=== PATIENT | female | born 1960 | race Caucasian/White ===

== ENCOUNTER 2017-09-15 10:30 | Observation (INO) | payer OTHER ==
[2017-09-15] VITALS (8 sets, daily range): BP systolic 110–148; BP diastolic 60–87; PULSE 54–72; RESP 18–20; Ht 154.9 cm; Wt 56.3 kg
[~2017-09-15] VITALS: Ht 154.9 cm; Wt 56.3 kg
--- NOTE | 2017-09-15 11:29 | RADRPT ---
PROCEDURE: Chest x-ray CLINICAL INDICATION: Chest pain TECHNIQUE: Chest single view COMPARISON: None FINDINGS: The heart is normal in size. The pulmonary vessels are normal in caliber. The lungs are clear. Th e costophrenic angles are sharp. The visualized bony thorax is unremarkable. IMPRESSION: No acute cardiopulmonary disease. RPTAT: HH .Tramaine Kim MD, Date Time Electronically viewed and signed by .Tramaine Kim MD, MD on 09/15/2017 11:29 .W/
[2017-09-15 11:36] LABS: BASOPHIL # 0.1 10^3/ul (0.0-0.1); BASOPHILS % 1.4 % (0.0-2.0); EOSINOPHILS # 0.1 10^3/ul (0.0-0.5); EOSINOPHILS % 1.6 % (0.0-7.0); HEMATOCRIT 41.6 % (37.0-47.0); LYMPHOCYTES # 1.6 10^3/ul (0.8-2.9); LYMPHOCYTES % 32.5 % (15.0-51.0); MEAN CORPUSCULAR HGB CONC 33.7 g/dl (32.0-37.0); MONOCYTE # 0.4 10^3/ul (0.3-0.9); MONOCYTES % 7.5 % (0.0-11.0); NEUTROPHIL # 2.8 10^3/ul (1.6-7.5); NEUTROPHILS % 56.8 % (39.0-77.0); PLATELET COUNT 188 10^3/UL (140-415); RED BLOOD COUNT 4.52 10^6/ul (4.20-5.40); RED CELL DISTRIBUTION WIDTH 12.3 % (11.5-14.5)
[2017-09-15 11:54] LABS: ANION GAP 13 (8-16); BLOOD UREA NITROGEN 15 mg/dl (7-20); CALCIUM 10.4 mg/dl (8.4-10.2); CARBON DIOXIDE 30 mmol/L (21-31); CHLORIDE 106 mmol/L (97-110); CREATININE 0.83 mg/dl (0.44-1.00); GLUCOSE 95 mg/dl (70-220); POTASSIUM 3.9 mmol/L (3.5-5.1); SODIUM 145 mmol/L (135-144)
[2017-09-15 12:07] LABS: TROPONIN-I < 0.012 ng/ml (0.00-0.12)
[2017-09-15] MEDS ORDERED: ONDANSETRON 4 MG INJ IV PRN ×2 (13:00→14:00)
[2017-09-15] MEDS ORDERED: ACETAMINOPHEN 325 MG TAB PO PRN ×2 (13:00→14:00)
--- NOTE | 2017-09-15 13:57 | ERD ---
ER Documentation Chief Complaint Chief Complaint PALPITATIONS WHILE AT DOCTOR OFFICE WITH NO CP . BIGEMINY ON EKG HPI This is a 57-year-old female with no significant past medical history other than hypertension who presents to the emergency room with palpitations. The patient was at a routine office visit because of elevated blood pressure. They noted that the patient had bradycardia. She was asymptomatic at the time. Patient denies any fevers, chills, chest pain or shortness of breath, no pleuritic pain. She states compliance with medications. ROS All systems reviewed and are negative except as per history of present illness. PMhx/Soc Hx Alcohol Use: No Hx Substance Use: No Hx Tobacco Use: No Smoking Status: Current every day smoker FmHx Family History: No diabetes Physical Exam Vitals Vital Signs Date Time Temp Pulse Resp B/P Pulse Ox O2 Delivery O2 Flow Rate FiO2 09/15/17 10:33 98.7 78 20 176/75 98 Physical Exam General: Well developed, well nourished, no acute distress Head: Normocephalic, atraumatic. Eyes: Pupils equally reactive, EOM intact ENT: Moist mucous membranes Neck: Supple, no lymphadenopathy Respiratory: Lungs clear bilaterally, no distress Cardiovascular: RRR, no murmurs, rubs, or gallops Abdominal: Soft, non-tender, non-distended, no peritoneal signs : Deferred MSK: No edema, no unilateral swelling, 5/5 strength Neurologic: Alert and oriented, moving all extremities, normal speech, no focal weakness, no cerebellar signs Skin: No rash Psych: Normal mood Result Diagram: 09/15/17 1125 09/15/17 1125 Results 24 hrs Laboratory Tests Test 09/15/17 11:25 White Blood Count 5.010^3/ul Red Blood Count 4.5210^6/ul Hemoglobin 14.0g/dl Hematocrit 41.6% Mean Corpuscular Volume 92.0fl Mean Corpuscular Hemoglobin 31.0pg Mean Corpuscular Hemoglobin Concent 33.7g/dl Red Cell Distribution Width 12.3% Platelet Count 65995^3/UL Mean Platelet Volume 12.0fl Neutrophils % 56.8% Lymphocytes % 32.5% Monocytes % 7.5% Eosinophils % 1.6% Basophils % 1.4% Nucleated Red Blood Cells % 0.0/100WBC Neutrophils # 2.810^3/ul Lymphocytes # 1.610^3/ul Monocytes # 0.410^3/ul Eosinophils # 0.110^3/ul Basophils # 0.110^3/ul Nucleated Red Blood Cells # 0.010^3/ul Sodium Level 145mmol/L Potassium Level 3.9mmol/L Chloride Level 106mmol/L Carbon Dioxide Level 30mmol/L Anion Gap 13 Blood Urea Nitrogen 15mg/dl Creatinine 0.83mg/dl Glucose Level 95mg/dl Calcium Level 10.4mg/dl Magnesium Level 2.0mg/dl Troponin I < 0.012ng/ml Free Thyroxine Index 3.14ug/ml Thyroxine (T4) 9.5ug/dl Triiodothyronine (T3) Uptake 33.0% Current Medications Medications (Trade) Dose Ordered Sig/Pilo Route PRN Reason Start Time Stop Time Status Last Admin Dose Admin Ondansetron HCl (Zofran Inj) 4 mg ER BRIDGE PRN IV NAUSEA AND/OR VOMITING 09/15/17 13:00 09/16/17 12:59 Acetaminophen (Tylenol Tab) 650 mg ER BRIDGE PRN PO MILD PAIN/FEVER 09/15/17 13:00 09/16/17 12:59 IV Flush (NS 3 ml) 3 ml PER PROTOCOL IV 09/15/17 14:00 UNV Ondansetron HCl (Zofran Inj) 4 mg Q6H PRN IV NAUSEA AND/OR VOMITING 09/15/17 14:00 UNV Acetaminophen (Tylenol Tab) 650 mg Q6H PRN PO PAIN LEVEL 1-3 OR FEVER 09/15/17 14:00 UNV Acetaminophen (Tylenol Supp) 650 mg Q6H PRN [place] PAIN LEVEL 1-3 OR FEVER 09/15/17 14:00 UNV Docusate Sodium (Colace) 100 mg Q12H PRN PO CONSTIPATION 09/15/17 14:00 UNV Heparin Sodium (Porcine) (Heparin (5000 Units/0.5 ml)) 5,000 unit Q12 SC 09/15/17 21:00 UNV Aspirin (Aspirin) 81 mg DAILY PO 09/16/17 09:00 UNV Hydralazine HCl (Apresoline) 10 mg Q6H PRN IV SBP>160 09/15/17 14:00 UNV Procedures/MDM EKG, MONITORS, & DIAGNOSTIC IMAGING: Chest x-ray: I reviewed and interpreted a 1 view of the chest Mediastinum: No enlargement Cardiac silhouette: No cardiomegaly Airspace: Clear lung velasquez bilaterally without evidence of pneumothorax Bones: No evidence of fracture EKG: I reviewed and interpreted a 12-lead EKG. Rhythm: Sinus bradycardia with bigeminy Ectopy: Bigeminy Intervals: No abnormalities ST segments: No elevations or depressions T waves: No contiguous inversions LAB INTERPRETATION: Negative troponin, normal magnesium MEDICAL DECISION MAKING: The patient presents with new onset bradycardia and bigeminy. She is asymptomatic and does not require pacing. She is hemodynamically stable. However, given the concern for bigeminy and the fact that the patient had palpated bradycardia in the office I believe inpatient hospitalization for cardiology consultation would be most reasonable. Given the patient's bradycardia BB therapy in the ED may be contraindicated. ER COURSE: Patient continues to be resting comfortably. Bigeminy intermittently on school lunch monitor but the patient remains asymptomatic. Patient's troponin and electrolytes are normal. She will be admitted for further management. I kept the patient and/or family informed of laboratory and diagnostic imaging results throughout the emergency room course. DISPOSITION PLAN: Telemetry admission for new onset bigeminy Accepting care team and consultations : CONSULTATION: Accepting care team and consultations: I discussed the current laboratory data, diagnostic imaging and emergency care provided. Admitting team: Dr. Suggs Admitting team indication: Insurance directed Departure Diagnosis: Primary Impression: Palpitations Additional Impressions: Bigeminy Bradycardia Condition: Stable WILLIE CAMERON MD Sep 15, 2017 13:57
[2017-09-15] MEDS ORDERED: DOCUSATE SODIUM 100 MG CAP PO PRN (14:00)
[2017-09-15] MEDS ORDERED: ACETAMINOPHEN 650 MG SUPP PR PRN (14:00)
[2017-09-15] MEDS ORDERED: hydrALAzine 20 MG INJ IV PRN (14:00)
[2017-09-15] MEDS ORDERED: NACL 0.9% 3 ML SYG IV SCH (14:00)
--- NOTE | 2017-09-15 14:05 | HP ---
Date/Time of Note Date/Time of Note DATE: 09/15/17 TIME: 13:58 Assessment/Plan VTE Prophylaxis VTE Prophylaxis Intervention: heparin Lines/Catheters IV [facility] Saline Lock Assessment/Plan Chief Complaint/Hosp Course 57-year-old female with past medical history of hypertension, who was sent from PCP of his for evaluation of EKG changes and palpitation. 1. Palpitations/ Ventricular premature beats with bigeminy pattern. -Admit as inpatient. - Will hold off to beta-rickey secondary to bradycardia. -Cardiology consult. -Monitor electrolyte level closely. -2D echocardiogram to rule out other cardiac etiology/structural heart disease of abnormal EKG. -idea worker consult as patient is currently undergoing tremendous life stressors. 2. Essential hypertension. -As per patient, she takes lisinopril and Norvasc at home. Defer to cardiology for blood pressure management in the setting of #1. -For now patient will be treated with PRN hydralazine. 3. Anxiety. -PRN Xanax DVT prophylaxis: Heparin Rest of the management depend on hospital course. Approximately 60 minutes was spent on this history and physical. Patient was seen in collaboration with . Problems: HPI/ROS Admit Date/Time Admit Date/Time Hx of Present Illness This is a 57-year-old female with a past medical history hypertension on lisinopril and Norvasc at home, was at her PCP clinic for routine office visit for hypertension and found to have abnormal EKG with PVCs/Bigeminy and palpitation. She was then asked to go to the ER. Patient denied any chest pain , shortness of breath, dizziness, nausea, vomiting, abdominal pain or other constitutional symptoms. She reported her heart feels fluttering intermittently. She has been also under tremendous life stressors. In the emergency room, a 12-lead EKG showed sinus rhythm with bigeminy is with a heart rate 58 bpm. Patient had a normal CBC and BMP except for a sodium 145 and calcium 10.4. TSH and troponin within acceptable range. Vital signs with blood pressure 176/75. Patient was admitted for further evaluation. ROS A 12 point review of system was assessed and is negative other than what is mentioned in HPI. PMH/Family/Social Past Medical History See HPI Past Surgical History See HPI Social History Patient denied history of alcohol, smoking or illicit drug use. Smoking Status: Current every day smoker Exam/Review of Systems Vital Signs Vitals Vital Signs Date Time Temp Pulse Resp B/P Pulse Ox O2 Delivery O2 Flow Rate FiO2 09/15/17 10:33 98.7 78 20 176/75 98 Exam Exam General: Thin built female, not in any acute distress . HEENT: Normocephalic, Atraumatic, No laceration or hematoma; Eyes: PEERL, Conjunctiva clear, Anicteric sclera Neck: Supple without any lymphadenopathy, nontender, no JVD, no carotid bruits, trachea midline, no thyromegaly Cardiac: S1, S2 auscultated, Irregular rate, no mumurs or gallop Pulmonary: Normal respiratory effort. Chest clear to auscultation bilaterally, no adventitious breath sounds GI: Abdomen normal to inspection. Soft, non tender, non- distended, no masses, no rebound tenderness or guarding. Bowel sounds active on all four quadrants Genitourinary: Deferred Extremities: No cyanosis, clubbing, or edema. Pulses [2+] bilaterally. Full ROM on all four extremities. No focal weakness appreciated. Neurologic: Alert to person, place, time, and situation. Affect appropriate, intact sensation. Skin: Clean,dry, and intact. No ecchymosis, no rashes, or lesions Labs Result Diagram: 09/15/17 1125 09/15/17 1125 Medications Medications Current Medications Ondansetron HCl (Zofran Inj) 4 mg Q6H PRN IV NAUSEA AND/OR VOMITING; Start 08/22 at 14:00; Status UNV Acetaminophen (Tylenol Tab) 650 mg Q6H PRN PO PAIN LEVEL 1-3 OR FEVER; Start 09/15/17 at 14:00; Status UNV BARB LLOYD NP Sep 15, 2017 14:05 BARB LLOYD NP Sep 15, 2017 14:05
[2017-09-15 14:47] LABS: IRON 104 ug/dl (35-150)
[2017-09-15 14:57] LABS: TOTAL IRON BINDING CAPACITY 321 ug/dl (241-421)
[2017-09-15 15:53] LABS: CREATINE KINASE 108 IU/L (23-200)
[2017-09-15 16:06] LABS: CK-MB 1.56 ng/ml (0.0-2.4); TROPONIN-I < 0.012 ng/ml (0.00-0.12)
--- NOTE | 2017-09-15 16:11 | RADRPT ---
Echocardiogram Report Patient Name: NGUYEN MARIE Gender: Female Date: 1960 Study Date: 15-Sep-2017 General Utility Maintenance Repairer: Izaiah Lujan [facility] Location: 510[facility] Ref. Physician: BARB LLOYD Quality: Adequate Procedures: Transthoracic echocardiogram with complete 2D, M-Mode, and doppler examination. Indications: Abnormal EKG. 2D/M Mode Doppler Measurement Value Normal Ranges Measurement Value Normal Ranges LVIDd 2D 3.8 3.5 - 5.6 cm AV Peak Harpreet 1.2 m/sec LVIDs 2D 2.3 2.1 - 4.1 cm AV Peak PG 5.0 mmHg FS 2D 37.5 % LVOT Peak Harpreet 1.1 m/sec LVPWd 2D 1.3 0.6 - 1.1 cm LVOT Peak PG 5.0 mmHg IVSd 2D 1.3 0.6 - 1.1 cm MV E Peak Harpreet 0.8 m/sec IVS/LVPW 2D 1.0 MV A Peak Harpreet 0.9 m/sec AoR Diam 2D 2.7 2.0 - 3.7 cm MV E/A 0.9 LA/Ao 2D 1 0 - 1 MV Decel Time 239 msec EDV 2D 53.2 cm3 MV E/A 0.9 ESV 2D 13.0 cm3 TR Peak Harpreet 2.0 m/sec LA Dimen 2D 3.3 2.3 - 4.0 cm TR Peak PG 16.0 mmHg RVSP 26.0 mmHg Findings Left Ventricle: Normal left ventricular systolic function. Normal left ventricular cavity size. Moderate concentric left ventricular hypertrophy. Ejection fraction is visually estimated at 60 %. Tissue Doppler/Mitral Doppler indices are consistent with impaired relaxation (Stage I diastolic dysfunction). Right Ventricle: Normal right ventricular size. Normal right ventricular systolic function. Left Atrium: The left atrium is normal in size. Right Atrium: The right atrium is normal in size. Mitral Valve: Mild mitral leaflet calcification. Mild mitral annular calcification. Trace mitral regurgitation. Aortic Valve: Normal appearance of the aortic valve. No significant aortic stenosis or insufficiency. Tricuspid Valve: Normal appearance of the tricuspid valve. Estimated peak PA systolic pressure 26 mmHg. There is mild tricuspid regurgitation. Pulmonic Valve: Pulmonic valve not well visualized. There is trace pulmonic regurgitation. Pericardium: Normal pericardium with no significant pericardial effusion. Aorta: Normal aortic root. IVC: Normal size and normal respiratory collapse consistent with normal right atrial pressure. Conclusions 1.Normal left ventricular systolic function. Normal left ventricular cavity size. Moderate concentric left ventricular hypertrophy. Ejection fraction is visually estimated at 60 %. Tissue Doppler/Mitral Doppler indices are consistent with impaired relaxation (Stage I diastolic dysfunction). 2.Mild mitral leaflet calcification. Mild mitral annular calcification. Trace mitral regurgitation. 3.Normal appearance of the aortic valve. No significant aortic stenosis or insufficiency. 4.Normal appearance of the tricuspid valve. Estimated peak PA systolic pressure 26 mmHg. There is mild tricuspid regurgitation. Electronically Signed By: Cluade Patiño 15-Sep-2017 16:10:24 -0800 Patient Name: NGUYEN MARIE Study Date: 15-Sep-[id number]
--- NOTE | 2017-09-15 17:25 | CONS ---
Date/Time of Note Date/Time of Note DATE: 09/15/17 TIME: 17:17 Assessment/Plan Assessment/Plan Chief Complaint/Hosp Course 1. Abnormal EKG with frequent PVCs 2. Rare palpitations secondary to above 3. Hypertension under control with Norvasc and ILEANA inhibitor Recommendations: We will monitor the patient on telemetry overnight. Rule out any significant other arrhythmias or any long periods of ventricular tachycardia. At this point patient is asymptomatic and as long as the patient remained asymptomatic we will continue conservative therapy. We will rule out for myocardial infarction. Thank you for his referral. I will continue to follow along with you. TOSHIA TA MD Problems: Consultation Date/Type/Reason Admit Date/Time Date of Consultation: Sep 15, 2017 Type of Consultation: cardiology Reason for Consultation Abnormal EKG Referring Provider: BARB LLOYD NP Hx of Present Illness Cardiology consultation Chief complaint: Abnormal EKG History of present illness: This is a 57-year-old female with history of hypertension on amlodipine and benazepril who was sent from her primary care office because of abnormal EKG. Patient says that she was to see her primary care physician for routine follow- up for her blood pressure. She denies any chest pain or pressure to me. EKG was done which had showed ventricular bigeminy for which patient was admitted to the hospital. Patient denies any syncope presyncope demented denies any dizziness to me. Denies any left-sided chest pain or pressure to me. She has had occasional palpitation feeling like her heart is skipping beats Allergies no known drug allergies Medication At Home benazepril 20 mg in the morning and Norvasc 5 mg at night Social history does not smoke Past medical history: Hypertension Review of systems she denies all except for above-mentioned family history denies any early coronary artery disease Social History Smoking Status: Current every day smoker Exam/Review of Systems Vital Signs Vitals Vital Signs Date Time Temp Pulse Resp B/P Pulse Ox O2 Delivery O2 Flow Rate FiO2 09/15/17 16:16 98.0 52 18 142/87 99 Exam General: no acute distress HEENT: NC/AT. pupils are equal. round. NECK: NO JVD. no stridor. CV: RRR. systolic murmur; no gallop or rubs. PULM: no wheezing or rhonchi. GI: SOFT, NT, ND, no rebound or guarding Extremity: trace B/L LE edema. no clubbing. neuro: awake and alert, OX3. Psych: calm and pleasant rectal: deferred : deferred ECG NSR with frequent PVCs and bigeminy ECHO reviewed Conclusions 1. Normal left ventricular systolic function. Normal left ventricular cavity size. Moderate concentric left ventricular hypertrophy. Ejection fraction is visually estimated at 60 %. Tissue Doppler/Mitral Doppler indices are consistent with impaired relaxation (Stage I diastolic dysfunction). 2. Mild mitral leaflet calcification. Mild mitral annular calcification. Trace mitral regurgitation. 3. Normal appearance of the aortic valve. No significant aortic stenosis or insufficiency. 4. Normal appearance of the tricuspid valve. Estimated peak PA systolic pressure 26 mmHg. There is mild tricuspid regurgitation. Results Result Diagram: 09/15/17 1125 09/15/17 1125 Results 24 hrs Laboratory Tests Test 09/15/17 11:25 09/15/17 15:16 White Blood Count 5.0 Red Blood Count 4.52 Hemoglobin 14.0 Hematocrit 41.6 Mean Corpuscular Volume 92.0 Mean Corpuscular Hemoglobin 31.0 Mean Corpuscular Hemoglobin Concent 33.7 Red Cell Distribution Width 12.3 Platelet Count 188 Mean Platelet Volume 12.0 H Neutrophils % 56.8 Lymphocytes % 32.5 Monocytes % 7.5 Eosinophils % 1.6 Basophils % 1.4 Nucleated Red Blood Cells % 0.0 Neutrophils # 2.8 Lymphocytes # 1.6 Monocytes # 0.4 Eosinophils # 0.1 Basophils # 0.1 Nucleated Red Blood Cells # 0.0 Sodium Level 145 H Potassium Level 3.9 Chloride Level 106 Carbon Dioxide Level 30 Anion Gap 13 Blood Urea Nitrogen 15 Creatinine 0.83 Glucose Level 95 Calcium Level 10.4 H Magnesium Level 2.0 Iron Level 104 Total Iron Binding Capacity 321 Percent Iron Saturation 32 Troponin I < 0.012 < 0.012 Vitamin B12 Level 901 Vitamin D 1,25-Dihydroxy 40.6 Free Thyroxine Index 3.14 Thyroxine (T4) 9.5 Triiodothyronine (T3) Uptake 33.0 Creatine Kinase 108 Creatine Kinase Index 1.4 Creatinine Kinase MB (Mass) 1.56 Medications Medications Current Medications Ondansetron HCl (Zofran Inj) 4 mg Q6H PRN IV NAUSEA AND/OR VOMITING; Start 08/22 at 14:00 Acetaminophen (Tylenol Tab) 650 mg Q6H PRN PO PAIN LEVEL 1-3 OR FEVER; Start 09/15/17 at 14:00 Acetaminophen (Tylenol Supp) 650 mg Q6H PRN [place] PAIN LEVEL 1-3 OR FEVER; Start 09/15/17 at 14:00 Docusate Sodium (Colace) 100 mg Q12H PRN PO CONSTIPATION; Start 09/15/17 at 14 :00 Heparin Sodium (Porcine) (Heparin (5000 Units/0.5 ml)) 5,000 unit Q12 SC ; Start 09/15/17 at 21:00 Aspirin (Aspirin) 81 mg DAILY PO ; Start 09/16/17 at 09:00 Hydralazine HCl (Apresoline) 10 mg Q6H PRN IV SBP>160; Start 09/15/17 at 14:00 TOSHIA TA MD Sep 15, 2017 17:25
[2017-09-15] MEDS: AMLODIPINE 5 MG TAB PO SCH (21:00)
[2017-09-15 21:15] LABS: CREATINE KINASE 93 IU/L (23-200)
[2017-09-15 21:26] LABS: CK-MB 1.16 ng/ml (0.0-2.4); TROPONIN-I < 0.012 ng/ml (0.00-0.12)
[2017-09-15] MEDS: HEPARIN 5,000 UNIT/0.5 ML VIAL SC SCH (21:51)
[2017-09-16] VITALS (13 sets, daily range): BP systolic 107–145; BP diastolic 67–81; PULSE 51–107; RESP 18–20
[2017-09-16 06:38] LABS: BASOPHIL # 0.1 10^3/ul (0.0-0.1); BASOPHILS % 1.1 % (0.0-2.0); EOSINOPHILS # 0.2 10^3/ul (0.0-0.5); EOSINOPHILS % 2.8 % (0.0-7.0); HEMATOCRIT 37.2 % (37.0-47.0); HEMOGLOBIN 12.6 g/dl (12.0-16.0); LYMPHOCYTES # 2.4 10^3/ul (0.8-2.9); LYMPHOCYTES % 37.3 % (15.0-51.0); MEAN CORPUSCULAR HEMOGLOBIN 31.1 pg (29.0-33.0); MEAN CORPUSCULAR HGB CONC 33.9 g/dl (32.0-37.0); MEAN CORPUSCULAR VOLUME 91.9 fl (82.0-101.0); MEAN PLATELET VOLUME 12.4 fl (7.4-10.4); MONOCYTE # 0.5 10^3/ul (0.3-0.9); MONOCYTES % 8.5 % (0.0-11.0); NEUTROPHIL # 3.2 10^3/ul (1.6-7.5); NEUTROPHILS % 50.1 % (39.0-77.0); PLATELET COUNT 181 10^3/UL (140-415); RED BLOOD COUNT 4.05 10^6/ul (4.20-5.40); RED CELL DISTRIBUTION WIDTH 12.2 % (11.5-14.5); WHITE BLOOD COUNT 6.4 10^3/ul (4.8-10.8)
[2017-09-16 06:50] LABS: ALANINE AMINOTRANSFERASE 39 IU/L (13-69); ALBUMIN 3.6 g/dl (3.3-4.9); ALBUMIN/GLOBULIN RATIO 1.28; ALKALINE PHOSPHATASE 70 IU/L (42-121); ANION GAP 12 (8-16); ASPARTATE AMINO TRANSFERASE 31 IU/L (15-46); BILIRUBIN,INDIRECT 0.5 mg/dl (0-1.1); BILIRUBIN,TOTAL 0.5 mg/dl (0.2-1.3); BLOOD UREA NITROGEN 14 mg/dl (7-20); CALCIUM 9.5 mg/dl (8.4-10.2); CARBON DIOXIDE 26 mmol/L (21-31); CHLORIDE 106 mmol/L (97-110); CHOL/HDL RATIO 4.2 RATIO; CHOLESTEROL 154 mg/dl (100-200); CREATININE 0.86 mg/dl (0.44-1.00); GLUCOSE 85 mg/dl (70-220); HDL CHOLESTEROL 36 mg/dl (37-92); MAGNESIUM 1.9 mg/dl (1.7-2.5); PHOSPHORUS 4.2 mg/dl (2.5-4.9); POTASSIUM 4.1 mmol/L (3.5-5.1); SODIUM 140 mmol/L (135-144); TOTAL PROTEIN 6.4 g/dl (6.1-8.1); TRIGLYCERIDES 69 mg/dl (0-149)
[2017-09-16] MEDS: ASPIRIN 81 MG TAB PO SCH (09:12)
[2017-09-16] MEDS: BENAZEPRIL 20 MG TAB PO SCH (09:12)
[2017-09-16] MEDS: HEPARIN 5,000 UNIT/0.5 ML VIAL SC SCH ×2 (10:01→21:00)
--- NOTE | 2017-09-16 10:16 | PN ---
Date/Time of Note Date/Time of Note DATE: 09/16/17 TIME: 10:09 Assessment/Plan VTE Prophylaxis VTE Prophylaxis Intervention: ambulation, heparin Lines/Catheters IV [facility] Saline Lock Assessment/Plan Chief Complaint/Hosp Course 57-year-old female with past medical history of hypertension, who was sent from PCP of his for evaluation of EKG changes and palpitation. 1. Ventricular premature beats with bigeminy pattern. Patient currently asymptomatic. She had palpitations which occurs very rarely and mostly with her social stressors. Status: Acute on chronic -Cardiology evaluation appreciated and patient has been started on Norvasc. -Follow-up 2D echocardiogram. -Patient is provided with resources for outpatient psychosocial group therapy/ counseling to relieve stressors. 2. Essential hypertension. Stable. Status: Chronic. -On lisinopril and Norvasc. 3. Anxiety. -Xanax PRN DVT prophylaxis: Heparin DC planning if no further cardiac intervention is required and patient is cleared from cardiology standpoint. Patient was seen in collaboration with . Problems: Subjective 24 Hr Interval Summary Free Text/Dictation Patient remains asymptomatic. She continued to have PVCs/bigeminy. Denied dizziness, chest pain, palpitation or other constitutional symptoms. Exam/Review of Systems Vital Signs Vitals Vital Signs Date Time Temp Pulse Resp B/P Pulse Ox O2 Delivery O2 Flow Rate FiO2 09/16/17 08:11 57 09/16/17 07:22 98.3 20 107/67 96 Intake and Output 09/15/17 09/15/17 09/16/17 15:00 23:00 07:00 Intake Total 250 ml 500 ml Balance 250 ml 500 ml Exam General: Thin built female, not in any acute distress . HEENT: Normocephalic, Atraumatic, No laceration or hematoma; Eyes: PEERL, Conjunctiva clear, Anicteric sclera Neck: Supple without any lymphadenopathy, nontender, no JVD, no carotid bruits, trachea midline, no thyromegaly Cardiac: S1, S2 auscultated, Irregular rate, no mumurs or gallop Pulmonary: Normal respiratory effort. Chest clear to auscultation bilaterally, no adventitious breath sounds GI: Abdomen normal to inspection. Soft, non tender, non- distended, no masses, no rebound tenderness or guarding. Bowel sounds active on all four quadrants Genitourinary: Deferred Extremities: No cyanosis, clubbing, or edema. Pulses [2+] bilaterally. Full ROM on all four extremities. No focal weakness appreciated. Neurologic: Alert to person, place, time, and situation. Affect appropriate, intact sensation. Skin: Clean,dry, and intact. No ecchymosis, no rashes, or lesions Results Result Diagram: 09/16/17 0608 09/16/17 0608 Results 24 hrs Laboratory Tests Test 09/15/17 11:25 09/15/17 15:16 09/15/17 20:19 09/16/17 06:08 White Blood Count 5.0 6.4 # Red Blood Count 4.52 4.05 L Hemoglobin 14.0 12.6 Hematocrit 41.6 37.2 Mean Corpuscular Volume 92.0 91.9 Mean Corpuscular Hemoglobin 31.0 31.1 Mean Corpuscular Hemoglobin Concent 33.7 33.9 Red Cell Distribution Width 12.3 12.2 Platelet Count 188 181 Mean Platelet Volume 12.0 H 12.4 H Neutrophils % 56.8 50.1 Lymphocytes % 32.5 37.3 Monocytes % 7.5 8.5 Eosinophils % 1.6 2.8 Basophils % 1.4 1.1 Nucleated Red Blood Cells % 0.0 0.0 Neutrophils # 2.8 3.2 Lymphocytes # 1.6 2.4 Monocytes # 0.4 0.5 Eosinophils # 0.1 0.2 Basophils # 0.1 0.1 Nucleated Red Blood Cells # 0.0 0.0 Sodium Level 145 H 140 Potassium Level 3.9 4.1 Chloride Level 106 106 Carbon Dioxide Level 30 26 Anion Gap 13 12 Blood Urea Nitrogen 15 14 Creatinine 0.83 0.86 Glucose Level 95 85 Calcium Level 10.4 H 9.5 Magnesium Level 2.0 1.9 Iron Level 104 Total Iron Binding Capacity 321 Percent Iron Saturation 32 Troponin I < 0.012 < 0.012 < 0.012 Vitamin B12 Level 901 Vitamin D 1,25-Dihydroxy 40.6 Free Thyroxine Index 3.14 Thyroxine (T4) 9.5 Triiodothyronine (T3) Uptake 33.0 Creatine Kinase 108 93 Creatine Kinase Index 1.4 1.2 Creatinine Kinase MB (Mass) 1.56 1.16 Hemoglobin A1c 5.4 Phosphorus Level 4.2 Total Bilirubin 0.5 Direct Bilirubin 0.00 Indirect Bilirubin 0.5 Aspartate Amino Transf (AST/SGOT) 31 Alanine Aminotransferase (ALT/SGPT) 39 Alkaline Phosphatase 70 Total Protein 6.4 Albumin 3.6 Globulin 2.80 Albumin/Globulin Ratio 1.28 Triglycerides Level 69 Cholesterol Level 154 LDL Cholesterol, Calculated 104 HDL Cholesterol 36 L Cholesterol/HDL Ratio 4.2 Thyroid Stimulating Hormone (TSH) Medications Medications Current Medications Ondansetron HCl (Zofran Inj) 4 mg Q6H PRN IV NAUSEA AND/OR VOMITING; Start 08/22 at 14:00 Acetaminophen (Tylenol Tab) 650 mg Q6H PRN PO PAIN LEVEL 1-3 OR FEVER; Start 09/15/17 at 14:00 Acetaminophen (Tylenol Supp) 650 mg Q6H PRN [place] PAIN LEVEL 1-3 OR FEVER; Start 09/15/17 at 14:00 Docusate Sodium (Colace) 100 mg Q12H PRN PO CONSTIPATION; Start 09/15/17 at 14 :00 Heparin Sodium (Porcine) (Heparin (5000 Units/0.5 ml)) 5,000 unit Q12 SC Last administered on 09/15/17t 21:51; Admin Dose 5,000 UNIT; Start 09/15/17 at 21: 00 Aspirin (Aspirin) 81 mg DAILY PO ; Start 09/16/17 at 09:00 Hydralazine HCl (Apresoline) 10 mg Q6H PRN IV SBP>160; Start 09/15/17 at 14:00 Benazepril HCl (Lotensin) 20 mg DAILY PO ; Start 09/16/17 at 09:00 Amlodipine Besylate (Norvasc) 5 mg DAILY PO ; Start 09/15/17 at 21:00 BARB LLOYD NP Sep 16, 2017 10:16 BARB LLOYD NP Sep 16, 2017 10:16
[2017-09-16] MEDS ORDERED: ALPRAZOLAM 0.25 MG TAB PO PRN (10:30)
--- NOTE | 2017-09-16 15:50 | CONS ---
Date/Time of Note Date/Time of Note DATE: 09/16/17 TIME: 15:47 Consult Date/Type/Reason Admit Date/Time Sep 15, 2017 at 12:58 Initial Consult Date 09/15/17 Type of Consultation: cardiology Ordering Provider: BARB LLOYD NP Subjective card follow-up note: Subjective: Discussed with the staff and rhythm was reviewed Patient remained normal sinus rhythm. Frequency has significantly improved. Patient was able to walk around yesterday and in fact during the walk. PVCs also improved as well. Patient denies any chest pain the patient denies any palpitation to minimize any dizziness lightheadedness. Should she wants to go home. O: General: no acute distress HEENT: NC/AT. pupils are equal. round. NECK: NO JVD. no stridor. CV: RRR. systolic murmur; no gallop or rubs. PULM: no wheezing or rhonchi. GI: SOFT, NT, ND, no rebound or guarding Extremity: trace B/L LE edema. no clubbing. neuro: awake and alert, OX3. Psych: calm and pleasant rectal: deferred : deferred ECG NSR with frequent PVCs and bigeminy ECHO reviewed Conclusions 1. Normal left ventricular systolic function. Normal left ventricular cavity size. Moderate concentric left ventricular hypertrophy. Ejection fraction is visually estimated at 60 %. Tissue Doppler/Mitral Doppler indices are consistent with impaired relaxation (Stage I diastolic dysfunction). 2. Mild mitral leaflet calcification. Mild mitral annular calcification. Trace mitral regurgitation. 3. Normal appearance of the aortic valve. No significant aortic stenosis or insufficiency. 4. Normal appearance of the tricuspid valve. Estimated peak PA systolic pressure 26 mmHg. There is mild tricuspid regurgitation. Objective Vital Signs Date Time Temp Pulse Resp B/P Pulse Ox O2 Delivery O2 Flow Rate FiO2 09/16/17 15:43 98.0 63 20 119/75 97 Intake and Output 09/15/17 09/15/17 09/16/17 14:59 22:59 06:59 Intake Total 250 ml 500 ml Balance 250 ml 500 ml Results/Medications Result Diagram: 09/16/17 0608 09/16/17 0608 Results 24 hrs Laboratory Tests Test 09/15/17 20:19 09/16/17 06:06 09/16/17 06:08 Creatine Kinase 93 Creatine Kinase Index 1.2 Creatinine Kinase MB (Mass) 1.16 Troponin I < 0.012 Thyroid Stimulating Hormone (TSH) 1.790 White Blood Count 6.4 # Red Blood Count 4.05 L Hemoglobin 12.6 Hematocrit 37.2 Mean Corpuscular Volume 91.9 Mean Corpuscular Hemoglobin 31.1 Mean Corpuscular Hemoglobin Concent 33.9 Red Cell Distribution Width 12.2 Platelet Count 181 Mean Platelet Volume 12.4 H Neutrophils % 50.1 Lymphocytes % 37.3 Monocytes % 8.5 Eosinophils % 2.8 Basophils % 1.1 Nucleated Red Blood Cells % 0.0 Neutrophils # 3.2 Lymphocytes # 2.4 Monocytes # 0.5 Eosinophils # 0.2 Basophils # 0.1 Nucleated Red Blood Cells # 0.0 Sodium Level 140 Potassium Level 4.1 Chloride Level 106 Carbon Dioxide Level 26 Anion Gap 12 Blood Urea Nitrogen 14 Creatinine 0.86 Glucose Level 85 Hemoglobin A1c 5.4 Calcium Level 9.5 Phosphorus Level 4.2 Magnesium Level 1.9 Total Bilirubin 0.5 Direct Bilirubin 0.00 Indirect Bilirubin 0.5 Aspartate Amino Transf (AST/SGOT) 31 Alanine Aminotransferase (ALT/SGPT) 39 Alkaline Phosphatase 70 Total Protein 6.4 Albumin 3.6 Globulin 2.80 Albumin/Globulin Ratio 1.28 Triglycerides Level 69 Cholesterol Level 154 LDL Cholesterol, Calculated 104 HDL Cholesterol 36 L Cholesterol/HDL Ratio 4.2 Medications Current Medications Ondansetron HCl (Zofran Inj) 4 mg Q6H PRN IV NAUSEA AND/OR VOMITING; Start 08/22 at 14:00 Acetaminophen (Tylenol Tab) 650 mg Q6H PRN PO PAIN LEVEL 1-3 OR FEVER; Start 09/15/17 at 14:00 Acetaminophen (Tylenol Supp) 650 mg Q6H PRN NM PAIN LEVEL 1-3 OR FEVER; Start 09/15/17 at 14:00 Docusate Sodium (Colace) 100 mg Q12H PRN PO CONSTIPATION; Start 09/15/17 at 14 :00 Heparin Sodium (Porcine) (Heparin (5000 Units/0.5 ml)) 5,000 unit Q12 SC Last administered on 09/16/17 10:01; Admin Dose 5,000 UNIT; Start 09/15/17 at 21: 00 Aspirin (Aspirin) 81 mg DAILY PO Last administered on 09/16/17 09:12; Admin Dose 81 MG; Start 09/16/17 at 09:00 Hydralazine HCl (Apresoline) 10 mg Q6H PRN IV SBP>160; Start 09/15/17 at 14:00 Benazepril HCl (Lotensin) 20 mg DAILY PO Last administered on 09/16/17t 09:12 ; Admin Dose 20 MG; Start 09/16/17 at 09:00 Amlodipine Besylate (Norvasc) 5 mg DAILY PO ; Start 09/15/17 at 21:00 Alprazolam (Xanax) 0.25 mg Q12H PRN PO ANXIETY; Start 09/16/17 at 10:30 Assessment/Plan Chief Complaint/Hosp Course 1. Abnormal EKG with frequent PVCs: PVCs have resolved on the patient appears to be completely asymptomatic at this point. 2. Rare palpitations secondary to above 3. Hypertension under control with Norvasc and ILEANA inhibitor Recommendations: cont BP control myocardial infarction was ruled out. Patient was advised to follow-up with her primary care physician. Consider outpatient cardiology consultation. Thank you for his referral. I will continue to follow along with you. TOSHIA TA MD Problems: TOSHIA TA MD Sep 16, 2017 15:50
--- NOTE | 2017-09-16 21:47 | RADRPT ---
Vent Rate: 51 bpm RR Interval: 0 msec MO Interval: 156 msec QRS Duration: 82 msec QT Interval: 462 msec QTC Interval: 425 msec P-R-T [place]: 61 - 61 - 58 degrees Sinus bradycardia Otherwise normal ECG Electronically Signed By: William Solis [id number]
[2017-09-17] VITALS: PULSE 65
[2017-09-17 03:30] VITALS: BP 124/80; RESP 19
[2017-09-17 04:00] VITALS: PULSE 50
[2017-09-17 08:08] VITALS: PULSE 50
[2017-09-17 08:17] VITALS: BP 119/78; RESP 17
[2017-09-17] MEDS: HEPARIN 5,000 UNIT/0.5 ML VIAL SC SCH (09:00)
[2017-09-17] MEDS: ASPIRIN 81 MG TAB PO SCH (09:27)
[2017-09-17] MEDS: AMLODIPINE 5 MG TAB PO SCH (09:28)
[2017-09-17] MEDS: BENAZEPRIL 20 MG TAB PO SCH (09:28)
--- NOTE | 2017-09-17 09:59 | PDOCDIS ---
Discharge Instructions CONDITION Patient Condition: Stable HOME CARE INSTRUCTIONS: Special Diet: LOW FAT, LOW CHOL FOLLOW UP/APPOINTMENTS Follow-up Plan 1.Follow up with primary care physician in 1 week-recommend outpatient cardiology referral. If you don't have one please let someone know, we can give you resources that may help you pick one. You may also call your insurance company to assign one to you. Review your medication list with your nurse before leaving and if you need new prescriptions please let your nurse know. I may have made changes to your home medications or given you new prescriptions, please let your primary doctor know as well. Stay compliant with your medications and report any side effects to your PCP or pharmacist. Return to the ER if you have any concerns and cannot reach your doctors or call your insurance company, they usually have a nurse that can help you. 2. Call 911 or go to the nearest emergency room if experiencing loss of consciousness, dizziness, chest pain, shortness of breath, vomiting/abdominal pain, speech difficulties, motor weakness or any unusual symptoms. BARB LLOYD NP Sep 17, 2017 09:59
[2017-09-17] MEDS ORDERED: BENA20TA48 PO (10:02)
[2017-09-17] MEDS ORDERED: ALPR0.254 PO (10:02)
[2017-09-17] MEDS ORDERED: AMLO-145 PO (10:02)
--- NOTE | 2017-09-17 10:07 | DS ---
Date/Time of Note Date/Time of Note DATE: 09/17/17 TIME: 10:05 Discharge Summary Admission/Discharge Info Admit Date/Time Sep 15, 2017 at 12:58 Discharge Date/Time Discharge Diagnosis 1. Palpitations/ Ventricular premature beats with bigeminy pattern. Resolved. 2. Essential hypertension. 3. Anxiety. Patient Condition: Stable Consults ,cardiology Procedures 09/15/2017. 2D echocardiogram. Conclusions 1. Normal left ventricular systolic function. Normal left ventricular cavity size. Moderate concentric left ventricular hypertrophy. Ejection fraction is visually estimated at 60 %. Tissue Doppler/Mitral Doppler indices are consistent with impaired relaxation (Stage I diastolic dysfunction). 2. Mild mitral leaflet calcification. Mild mitral annular calcification. Trace mitral regurgitation. 3. Normal appearance of the aortic valve. No significant aortic stenosis or insufficiency. 4. Normal appearance of the tricuspid valve. Estimated peak PA systolic pressure 26 mmHg. There is mild tricuspid regurgitation. Hx of Present Illness This is a 57-year-old female with a past medical history hypertension on lisinopril and Norvasc at home, was at her PCP clinic for routine office visit for hypertension and found to have abnormal EKG with PVCs/Bigeminy and palpitation. She was then asked to go to the ER. Patient denied any chest pain , shortness of breath, dizziness, nausea, vomiting, abdominal pain or other constitutional symptoms. She reported her heart feels fluttering intermittently. She has been also under tremendous life stressors. In the emergency room, a 12-lead EKG showed sinus rhythm with bigeminy is with a heart rate 58 bpm. Patient had a normal CBC and BMP except for a sodium 145 and calcium 10.4. TSH and troponin within acceptable range. Vital signs with blood pressure 176/75. Patient was admitted for further evaluation. Hospital Course Patient had cardiology evaluation and recommended to continue Norvasc. Her electrolyte levels remained stable. She was also continued on lisinopril for blood pressure management. Patient was able to ambulate and there was no PVCs with walking. She did not have any chest pain or dizziness or lightheadedness. She was ruled out for myocardial infarction with negative troponins and EKG. Echocardiogram with preserved ejection fraction. She remained in normal sinus rhythm. As per cardiology, patient is asymptomatic and does not require any cardiac intervention as in-house. She can be monitored as outpatient. Patient also had geriatric social worker evaluation as she was under tremendous life stressors and provided with resources. She was also started on as needed Xanax. There was no further PVCs or palpitation. Patient remained medically stable for discharge with outpatient follow-up. Disposition: Home. Patient verbalized discharge instructions. Approximately 60 minute was spent in coordinating the discharge on this patient. Patient was seen in collaboration with Follow-up Plan 1.Follow up with primary care physician in 1 week-recommend outpatient cardiology referral. If you don't have one please let someone know, we can give you resources that may help you pick one. You may also call your insurance company to assign one to you. Review your medication list with your nurse before leaving and if you need new prescriptions please let your nurse know. I may have made changes to your home medications or given you new prescriptions, please let your primary doctor know as well. Stay compliant with your medications and report any side effects to your PCP or pharmacist. Return to the ER if you have any concerns and cannot reach your doctors or call your insurance company, they usually have a nurse that can help you. 2. Call 911 or go to the nearest emergency room if experiencing loss of consciousness, dizziness, chest pain, shortness of breath, vomiting/abdominal pain, speech difficulties, motor weakness or any unusual symptoms. Primary Care Provider Care Physician No Primary BARB LLOYD NP Sep 17, 2017 10:07
[2017-09-17 12:19] VITALS: PULSE 82
== END 2017-09-17 13:00 | disposition home or self-care (01) ==
LOC: E/R 10:30 → TEL 12:58
PROVIDERS: ADMIT Family Medicine; ATTEND Family Medicine
DX: R00.2 Palpitations (principal); I49.3 Ventricular premature depolarization; R00.8 Other abnormalities of heart beat; I10 Essential (primary) hypertension; F41.9 Anxiety disorder, unspecified; F17.200 Nicotine dependence, unspecified, uncomplicated
CPT/HCPCS: 36415; 71010; 80048; 80053; 80061; 82550; 82553; 82607; 82652; 83036; 83540; 83735; 84100; 84436; 84443; 84479; 84484; 85025; 93005; 93306; J1644; Z7500; Z7502; Z7610; G0378